=== PATIENT | female | born 1970 | race Caucasian/White ===

== ENCOUNTER 2018-01-09 11:57 | Outpatient (REF) | payer BC, SELFPAY ==
--- NOTE | 2018-01-09 10:30 | PAPFT_PTH ---
PATIENT: Sylvia Gordon LOC: [facility] U#:[id number] AGE/SX: 47/F ROOM: RE01/09/[address]: Sima Syed APRN : 1970 BED: DIS: 01/09/2018 SPEC #: [id number] RECD: 01/09/18 12:57 STATUS: JAZMINE REJovani #: [id number] FIDE: 01/09/18 10:[address]: Sima Syed DEPT: [facility] Cytology RECD BY: Rosa Andrew Tissues: 1 - CX/ENDOCX FOR PAP SMEARS Procedures: PAP THIN PREP/UVM Screening HPV DNA PROBE Comments: [id number]
== END 2018-01-09 12:17 ==
LOC: LBN 11:57
DX: Z12.4 Encounter for screening for malignant neoplasm of cervix (principal); Z11.51 Encounter for screening for human papillomavirus (HPV)
CPT/HCPCS: 88142; 87624

== ENCOUNTER 2018-01-17 02:31 | Outpatient (CLI) | payer BC, SELFPAY ==
[2018-01-17 08:41] LABS: ALT 21 U/L (12-78); AST 14 U/L (15-37); Alkaline Phosphatase 62 U/L (46-116); Anion Gap 6.8 mmol/L (3-11); BUN 13 mg/dL (7-18); Bilirubin, Total 0.6 mg/dL (0.2-1.0); CO2 31.2 mmol/L (21.0-32.0); CREATININE 0.71 mg/dL (0.55-1.02); Calcium 9.2 mg/dL (8.5-10.1); Chloride 104 mmol/L (98-107); Glucose 98 mg/dL (70-100); Potassium 4.2 mmol/L (3.5-5.1); Sodium 142 mmol/L (136-145); Total Protein 6.8 g/dL (6.4-8.2)
[2018-01-17 13:40] LABS: Cholesterol 247 mg/dL (50-200); HDL Cholesterol 72 mg/dL (40-60); LDL CHOLESTEROL 159 mg/dL (<100); Triglyceride 63 mg/dL (30-150)
== END 2018-01-17 02:51 ==
DX: Z00.00 Encounter for general adult medical examination without abnormal findings (principal); N95.1 Menopausal and female climacteric states; F17.200 Nicotine dependence, unspecified, uncomplicated; E78.00 Pure hypercholesterolemia, unspecified
CPT/HCPCS: 36415; 80053; 80061; 83721

== ENCOUNTER 2018-01-22 00:36 | Outpatient (CLI) | payer BC, SELFPAY ==
--- NOTE | 2018-01-22 07:42 | DI.MAMMO_ITS ---
SYMPTOM/DIAGNOSIS: SCREENING, Z12.31 MAMMOGRAMS: Mammograms were interpreted according to the usual protocol including computer analysis with CAD system, tomosynthesis and C view imaging. Comparison is made with exams from 2015 and 2017. The breasts are composed of heterogeneously dense fibroglandular tissue, breast density, Category C. No suspicious masses or suspicious microcalcifications are seen. There has been no significant change. IMPRESSION: Category 1C. Negative mammogram. Yearly screening mammography is recommended. [facility] ASSESSMENT OF FINDINGS: Negative. Category 1. Patient will receive a letter notifying them of these results. Bi-RADS category C. The breasts are heterogeneously dense, which may obscure small masses.
== END 2018-01-22 00:56 ==
DX: Z12.31 Encounter for screening mammogram for malignant neoplasm of breast (principal)
CPT/HCPCS: 77063; 77067

== ENCOUNTER 2019-01-28 02:43 | Outpatient (CLI) | payer BC, SELFPAY ==
[2019-01-28 11:04] LABS: Anion Gap 10.3 mmol/L (3-11); BUN 10 mg/dL (7-18); CO2 28.7 mmol/L (21.0-32.0); CREATININE 0.79 mg/dL (0.55-1.02); Calcium 9.1 mg/dL (8.5-10.1); Calculated LDL 144 mg/dL; Chloride 104 mmol/L (98-107); Cholesterol 219 mg/dL (50-200); Glucose 99 mg/dL (70-100); HDL Cholesterol 62 mg/dL (40-60); Potassium 4.2 mmol/L (3.5-5.1); Sodium 143 mmol/L (136-145); Triglyceride 69 mg/dL (30-150)
== END 2019-01-28 03:03 ==
DX: E78.5 Hyperlipidemia, unspecified (principal); I10 Essential (primary) hypertension; Z00.00 Encounter for general adult medical examination without abnormal findings
CPT/HCPCS: 36415; 80048; 80061

== ENCOUNTER 2019-03-17 01:03 | Outpatient (CLI) | payer BC, SELFPAY ==
--- NOTE | 2019-03-17 10:59 | DI.MAMMO_ITS ---
EXAM: MG MAMMO SCREENING CLINICAL HISTORY: screening, Z12.39. TECHNIQUE: Full field digital CC and MLO mammographic images were obtained with 3D tomosynthesis and utilizing computer aided detection (CAD). COMPARISON: [id number]. FINDINGS: Breast density: C Masses/Architectural Distortion: None seen. Microcalcifications: No suspicious pleomorphic-type calcifications are seen. Skin Thickening/Nipple Retraction: None. Axilla: Unremarkable. IMPRESSION: 1. BI-RADS category 1, negative. No significant interval change with no specific features of maligna ncy noted. 2. Unless there is more urgent need, screening mammography is recommended, as per [employer] guidelines. BI-RADS Cat 1 - Negative Breast Density - Category C - Heterogeneously dense A negative radiographic report should not delay biopsy if a dominant or clinically suspicious mass is present. Up to ten percent of cancers are not identified on mammography. A negative report may reinforce clinical impression. Adenosis and dense breasts may obscure an underlying neoplasm. False positive reports average 6 to 10%. Patient will receive a letter notifying them of these results.
== END 2019-03-17 01:23 ==
DX: Z12.31 Encounter for screening mammogram for malignant neoplasm of breast (principal)
CPT/HCPCS: 77063; 77067

== ENCOUNTER 2019-04-03 13:00 | Emergency (ER) | payer OTHER, SELFPAY ==
[2019-04-03 13:03] VITALS: BP 127/73; PULSE 82; RESP 16; TEMP 36.8; O2SAT 100
--- NOTE | 2019-04-03 13:10 | W.ED.GENAD ---
Discharge Plan Disposition Patient Disposition: HOME Condition: Good Discharge Details Chief Complaint: Orthopedic Clinical Impression: Tendonitis, Biceps tendinitis, Calcific tendonitis Primary Care Provider: Sima Syed ED Provider: Kathy Buchanan Home Meds and New Rx's Prescriptions: New ibuprofen 600 mg tablet 600 mg PO QID PRN (Reason: pain) Qty: 30 RF: 0 Continued ibuprofen 200 MG tablet 2 - 3 tab PO PRN RF: 0 Discharge Instructions Instructions: Tendinitis (ED) Additional Instructions: Encourage rest, ice, elevation. Please use ibuprofen as prescribed. You may augment this with Tylenol, you may take it thousand Tylenol 4 times a day as needed. You may use xtvp-xkh-[id number] patches such as salonpas or Lidoderm patches for the pain. Please perform your passive range of motion exercises as discussed. Please perform these exercises at least 5 times daily to help prevent frozen shoulder. Please avoid activities that cause increased discomfort. Referral for physical therapy is attached. Please call schedule appointment. Please contact your primary care and follow-up in the next 2 weeks for reevaluation. If you develop fever/chills, increased pain or other new/worsening symptoms please seek care urgently once again. Stand Alone Forms: Physical Therapy Referral, Work Release Referrals: Sima Syed, [employer] [Primary Care Provider] - Medical Decision Making Patient is a pleasant [id number]-vxfb-[id number] 48-year-old female presenting today with chief complaint of right shoulder pain. She reports that she has had some mild low-level chronic right shoulder painexacerbated at doing inventory at work overhead 3 days ago. She reports the pain was even further exacerbated when she was cleaning her house yesterday. She denies any known trauma. No recent fall. No fevers or chills. Patient is now having severe pain with any type of movement of the shoulder and is having difficulty with her ADLs secondary to this discomfort. No previous surgery. On exam, patient is exquisitely tender over the biceps tendon. Positive speeds exam. Negative Neer but positive Quesada. No Clifford deformity. Neurovascularly intact. Plan for imaging. Has been taking anti-inflammatories, will augment this with Tylenol and Lidoderm patch. Passive range of motion exercises were discussed at length with patient. X-ray reviewed by radiologist FINDINGS: Five views were obtained. On the axillary view there is apparent soft tissue calcification projected in the region of the subscapularis tendon raising the possibility of a calcific peritendinitis. No other bony or soft tissue abnormality is seen. This does correlate clinically as the patient did have exquisite discomfort with internal rotation against resistance. Discussed findings at length with the patient. I reiterated the importance of passive range of motion. I will discharge home with a sling as the patient has multiple upcoming social events to help limit her movements. However, I did advise that she not have these done otherwise as this may increase her risk for adhesive capsulitis. We discussed appropriate dosings of ibuprofen and Tylenol. Advised topical options to help with her discomfort. A referral for physical therapy will be given. I advised follow-up with primary care in 2 weeks for reevaluation. All other questions or concerns were addressed and she is in agreement this plan. HPI General Mode of arrival: ambulatory. Date/Time Provider Initiated Documentation: 04/03/19 13:04. Limitations to Documentation: no limitations. Information obtained by: patient and RN notes reviewed. History of Present Illness 48 year old F presents to the emergency department with the chief complaint of right shoulder pain, described as severe, with intensity rated at 8. Quality is described as aching, and is localized to the right and upper extremity. Patient extremity (distally into RUE). Patient started experiencing this day(s) and it has been constant. Immobilization improves symptom(s), Movement worsens symptoms (particularly over head movements) . Patient notes no other symptoms.. Patient did receive the following treatments prior to arrival, NSAID Related Data Home Medications Medication Instructions Recorded Confirmed ibuprofen 2 - 3 tab PO PRN 10/25/16 04/03/19 ibuprofen 600 mg PO QID PRN #30 tab 04/03/19 Previous Rx's Medication Instructions Recorded ibuprofen 600 mg PO QID PRN #30 tab 04/03/19 Allergies Allergy/AdvReac Type Severity Reaction Status Date / Time No Known Allergies Allergy Verified 04/03/19 13:07 General Stated Complaint: Orthopedic NINA: 4 Review of Systems Constitutional Constitutional: Reports as per HPI, Denies chills, Denies fever(s), Denies headache(s) and Denies weakness ENT Ears, Nose, Mouth, and Throat: Denies headache(s) Cardiovascular Cardiovascular: Reports as per HPI Respiratory Respiratory: Reports as per HPI and Denies cough Musculoskeletal Musculoskeletal: Reports as per HPI and Denies tingling Integumentary/Breasts Skin/Breast: Reports as per HPI, Denies rash and Denies wounds Neurologic Neurologic: Reports as per HPI, Denies headache(s), Denies tingling, Denies paresthesias and Denies weakness [facility] Medical History Complicated grieving (Acute) Finger problem (Acute) Surgical History History of tonsillectomy (Resolved) 1980 Family History (Updated 01/17/19 @ 10:12 by Weston Cifuentes) Mother , AGE 39 Breast cancer Father Hyperlipidemia Brother No problems noted. Maternal Grandfather , age 82 No problems noted. Paternal Grandfather , age 80 No problems noted. Maternal Grandmother , age 93 No problems noted. Paternal Grandmother , age 84 No problems noted. Social History Smoking/Tobacco Use Status: Current every day Tobacco Type: cigarettes Quit status: has quit before Smoking risk assessment performed?: Yes Alcohol Intake: current Alcohol Intake frequency: a few times a week Alcohol type: beer Drug use: Never Substance use type: does not use Counseling given: No Counseling provided: none Caregiver/Support person: No Household members: spouse, family, children and other Details: TBI client Housing: house Communication Needs: None Do you need help understanding health information?: Rarely current occupation: CONTROLLER Pets and animals: Yes Pets and animals: dog(s) Sexually active: Yes Do you think of yourself as: straight/heterosexual Current gender identity: female What is your relationship status?: How often do you talk on the phone with friends or family?: once per week How often do you get together with friends or relatives?: once per week How often do you attend orthodox or adventist services?: 1-3 times per year Do you belong to any clubs or organized social groups?: no Panel score (0-1 are the most socially isolated patients): 1 What type of physical activity do you participate in: walking Duration: < 15 minutes/day Frequency: 1-2 times per week Emily/Mormon: No preference Special emily needs: No Seatbelt use: always Helmet use: Yes Helmet use: always Drive intox or ride w/intox otr flatbed driver: No Do you feel safe at home: Yes Do you feel safe in your relationship?: Yes Exam Const General: cooperative, healthy appearing, comfortable, no acute distress, well developed and well groomed Nutritional Appearance: average body habitus and well nourished Orientation: alert and awake Resp Effort & Inspection: normal respiratory effort, able to speak in complete sentences and no respiratory distress Cardio Rate: regular rate Rhythm: regular rhythm Skin General skin exam: no rashes or lesions noted Lesions: no lesions Rashes: no rashes Trauma: no lacerations or abrasions Neuro General: alert and awake Cognition: normal cognition Speech: speech normal Gait: normal gait Motor: muscle tone normal throughout Sensory Exam: no sensory deficits noted Extrem General: normal to inspection, abnormal ROM, normal capillary refill, normal exam except as noted and no joint enlargement Right upper extremity: normal to inspection, normal capillary refill, no joint enlargement, shoulder/upper arm Details: tenderness Location: over the biceps tendon, axillary nerve sensory function normal, abnormal ROM Details: pain with active ROM (FE to 90, ER equal to contralateral side, IR to buttock) and other (+ speed, - neer, +quesada); no swelling, no abrasions, no lacerations, no ecchymosis, no crepitus, no foreign bodies, no penetrating wound, no deformity and no unusual warmth, elbow/forearm Details: normal to inspection, normal ROM and distal pulses intact; no tenderness and no swelling, wrist Details: normal to inspection and normal ROM; no tenderness and no swelling and hand Details: normal to inspection, normal capillary refill, neuromotor exam normal and neurosensory exam normal; ROM limited Psych Appearance: grossly normal and well kempt Mental Status: mental status grossly normal Speech and Movement: speech and movement normal Course Vital Signs Vital signs: Vital Signs Temperature 36.8 C 04/03/19 13:03 Pulse 82 04/03/19 13:03 Respiratory Rate 16 04/03/19 13:03 Blood Pressure 127/73 04/03/19 13:03 Pulse Oximetry 100 04/03/19 13:03 Temperature 36.8 C 04/03/19 13:03 Temperature Source Temporal Artery Scan 04/03/19 13:03 Pulse 82 04/03/19 13:03 Respiratory Rate 16 04/03/19 13:03 Respiratory Effort Non-Labored 04/03/19 13:06 Blood Pressure 127/73 04/03/19 13:03 Blood Pressure Position Sitting 04/03/19 13:03 Pulse Oximetry 100 04/03/19 13:03 Oxygen Delivery Method Room Air 04/03/19 13:03 Oxygen Flow Rate 0 04/03/19 13:03 Pain Level 8 04/03/19 13:03
[2019-04-03] MEDS: Acetaminophen 500 MG TAB 1000 MG PO (13:31)
[2019-04-03] MEDS: Lidocaine 5% Patch 1 PATCH TP (13:32)
--- NOTE | 2019-04-03 13:39 | DI.RAD_ITS ---
EXAM: XR SHOULDER LT COMPLETE 2+V CLINICAL HISTORY: pain anteriorly TECHNIQUE: COMPARISON: No exams were available for comparison FINDINGS: Five views were obtained. On the axillary view there is apparent soft tissue calcification projected in the region of the subscapularis tendon raising the possibility of a calcific peritendinitis. No other bony or soft tissue abnormality is seen. IMPRESSION:
== END 2019-04-03 14:23 | disposition home or self-care (01) ==
PROVIDERS: Emergency Provider Physician Assistant
DX: M75.21 Bicipital tendinitis, right shoulder (principal); M75.31 Calcific tendinitis of right shoulder
CPT/HCPCS: 99283; 73030; L3650

== ENCOUNTER 2019-04-18 09:48 | Day surgery (SDC) | payer OTHER, SELFPAY ==
[2019-04-18 10:27] VITALS: BP 125/84; PULSE 92; RESP 16; TEMP 36.2; O2SAT 99
[2019-04-18] MEDS: Lactated Ringers 1,000 ML 80 ML IV (10:43)
--- NOTE | 2019-04-18 11:20 | W.PM.DSUDISC ---
Discharge Plan Disposition Patient Disposition: HOME Condition: Good Discharge Details Reason For Visit: Colonoscopy Attending Provider: Sangeetha Mccormick Primary Care Provider: Sima Syed Home Meds and New Rx's Prescriptions: Continued ibuprofen 200 MG tablet 2 - 3 tab PO PRN RF: 0 Discontinued polyethylene glycol 3350 17 gram/dose powder 238 g PO ONCE Qty: 238 RF: 0 bisacodyl [Dulcolax (bisacodyl)] 5 mg tablet,delayed release (DR/EC) 5 mg PO ONCE Qty: 4 RF: 0 Discharge Instructions Additional Instructions: Findings: Two polyps were removed. My office will contact you with biopsy results. Follow up: Plan for a colonoscopy in 3-5 depending on biopsy results. Please call if you develop: fevers >101.5 Nausea or Vomiting Abdominal pain that is not transient DAY SURGERY UNIT POST COLONOSCOPY INSTRUCTIONS 1. Because there will be medication in your system for the next 24 hours, you may feel a little sleepy. Your coordination will be affected. Therefore: a. Do not drive or operate dangerous equipment for 24 hours. b. Do not drink alcohol beverages for 24 hours (not even beer). c. Plan to go home and rest for the day. 2. Generally there are no restrictions on your activity after a day or so has gone by, but you may feel a bit fatigued for a few days. 3 After you arrive home you may have a light meal and return to a normal diet as you can tolerate it without feeling sick to your stomach. 4. After surgery, you may feel pain or discomfort. This should be only transient, but if it persists please contact your doctor. 5. If there are any questions regarding the findings of your procedure, please feel free to contact your doctor. 6. If you are unable to contact your doctor with a problem, contact the hospital at [phone]. 7. Continue all your regular medications unless directed otherwise. I understand the above instructions and have no questions. Signature of Patient or Responsible Adult Escort Date/Time Name of Responsible Adult Escort Signature of Nurse Date/Time Stand Alone Forms: Mehran Coleman ([facility]) Activity:: Activity as Tolerated Diet:: As Tolerated Discharge Orders Discharge Orders: Discharge Order (Routine); Ordered 04/18/19 Ordered By: Sangeetha Mccormick DS: Diagnosis Discharge Diagnosis (1) Colon polyps: Status: Acute
--- NOTE | 2019-04-18 12:00 | BOWEL_PTH ---
PATIENT: Sylvia Gordon LOC: [facility] U#:[id number] AGE/SX: 48/F ROOM: RE04/18/[address]: Sangeetha Mccormick MD : 1970 BED: DIS: 04/18/2019 SPEC #: [id number] RECD: 04/18/19 13:21 STATUS: JAZMINE REJovani #: [id number] FIDE: 04/18/19 12:[address]: Sangeetha Mccormick DEPT: Surgical Specimen RECD BY: Rosa Andrew ENTERED: 04/18/19 13:22 SP TYPE: Bowel OTHR DR: Sima Syed APRN Tissues: 1 - BIOPSY BOWEL 2 - BIOPSY BOWEL Procedures: GROSS AND MICRO LEVEL 4 Comments: [id number]
[2019-04-18 12:53] VITALS: BP 105/73; PULSE 64; RESP 16; TEMP 36.2; O2SAT 100
--- NOTE | 2019-04-18 12:59 | COLE_ITS ---
DATE OF PROCEDURE: April 18, 2019 PREOPERATIVE DIAGNOSIS: Screening. POSTOPERATIVE DIAGNOSIS: Colon polyps. PROCEDURE: Colonoscopy with cold forceps polypectomy and snare polypectomy. SURGEON: Sangeetha Mccormick M.D. ANESTHESIA: General. INDICATIONS: This is a 48-year-old woman who presents for her first screening colonoscopy. She is a symptomatic and has no family history of colon cancer. PROCEDURE: She was placed in the left Falcon position. Propofol was titrated to sedation. Digital re ctal examination revealed no abnormalities. The scope was advanced to the cecum without difficulty. The ileocecal valve and appendiceal orifice were clearly identified. Her prep was good. The scope was slowly withdrawn with no abnormalities seen within the ascending or transverse colon. In the pro ximal descending colon there was a diminutive polyp that was removed completely with a cold forceps a nd sent to pathology. No other abnormalities were seen throughout the remaining descending or sigmoi d colon. In the rectum just above the second rectal valve was a < 1 cm polyp that appeared slightly lymphoid in nature. This was removed completely with the snare using cautery and retrieved for patho logy. Retroflexion showed no other abnormalities. She will need a follow-up colonoscopy again in 3 to 5 years depending on polyp pathology. cc: Chong Miller
== END 2019-04-18 13:03 | disposition home or self-care (01) ==
PROVIDERS: Visit Provider Surgery
PROC: 0DJD8ZZ Inspection of Lower Intestinal Tract, Via Natural or Artificial Opening Endoscopic (ICD-10-PCS; CPT 45378; principal; 2019-04-18 11:15)
DX: Z12.11 Encounter for screening for malignant neoplasm of colon (principal); D12.4 Benign neoplasm of descending colon; K62.1 Rectal polyp; F17.210 Nicotine dependence, cigarettes, uncomplicated
CPT/HCPCS: 45385; 45380; 88305; J2001

== ENCOUNTER 2019-11-24 10:47 | Emergency (ER) | payer OTHER, SELFPAY ==
[2019-11-24 10:51] VITALS: BP 130/74; PULSE 99; TEMP 37.2; O2SAT 96
--- NOTE | 2019-11-24 11:00 | DI.RAD_ITS ---
EXAM: XR ELBOW LT COMPLETE CLINICAL HISTORY: Fall last night TECHNIQUE: COMPARISON: No exams were available for comparison FINDINGS: Three views were obtained. There is no evidence of an elbow joint effusion or hemarthrosis. No frac ture is seen. IMPRESSION: RADIATION DOSE DELIVERED: Total DLP
--- NOTE | 2019-11-24 11:00 | DI.RAD_ITS ---
EXAM: XR FOOT RT COMPLETE CLINICAL HISTORY: Fall last night TECHNIQUE: COMPARISON: No exams were available for comparison FINDINGS: Three views were obtained. There is no evidence of fracture or dislocation. IMPRESSION: RADIATION DOSE DELIVERED: Total DLP
--- NOTE | 2019-11-24 11:08 | W.ED.GENAD ---
Discharge Plan Disposition Patient Disposition: HOME Condition: Stable Discharge Details Chief Complaint: Orthopedic Clinical Impression: Contusion of foot, Contusion of elbow Primary Care Provider: Sima Syed ED Provider: Kiko Delcid Home Meds and New Rx's Prescriptions: Continued ibuprofen 200 MG tablet 2 - 3 tab PO PRN RF: 0 Discharge Instructions Instructions: Contusion in Adults (ED), Foot Contusion (ED) Additional Instructions: Both x-rays are unremarkable. We discussed treatment options, you have declined crutches or splinting. Rest, elevate, cool compresses every 2 hours for 20 minutes. Gyix-nat-biswyof Tylenol and/or Motrin as directed for discomfort. Please watch for new or worsening symptoms and return to the ER for any concerns. I do recommend reaching out your primary care provider and following up at your convenience if symptoms persist Medical Decision Making 49-year-old female with no significant past medical history presents for evaluation of left elbow and right foot pain status post mechanical fall yesterday. She appears well, nontoxic, denies striking her head. Denies headache, neck pain, numbness, tingling, weakness. She is neuro, vascular, tendon intact. Will obtain x-ray of left elbow and right foot for further evaluation to rule out any bony abnormality. Patient comfortable this plan X-ray of right foot and left elbow read by radiology as negative. Discussed findings with patient. She declines crutches or splinting. Simply relieved that it is not broken. Case was discussed with Dr. Eaton who evaluated the patient personally, please see his note Medical Records Medical records reviewed: Yes I reviewed the patient's medical records. HPI General Mode of arrival: ambulatory. Date/Time Provider Initiated Documentation: 11/24/19 10:59. Limitations to Documentation: no limitations. Information obtained by: patient. HPI Narrative: This is a 49-year-old female who is left-hand dominant, denies significant past medical history, presenting for evaluation status post mechanical fall last night. She reports that she slipped on [place] and injured her right ankle, left elbow, only been on both knees. She reports the pain in her elbow and foot is moderate in nature, worse with movement. Pain in the knees are minor and she is able to ambulate on them without difficulty. She did not strike her head. Denies any other injuries. Denies headache, neck pain, chest pain, shortness of breath, numbness, tingling, weakness, incontinence. Related Data Home Medications Medication Instructions Recorded Confirmed ibuprofen 2 - 3 tab PO PRN 10/25/16 11/24/19 Allergies Allergy/AdvReac Type Severity Reaction Status Date / Time No Known Allergies Allergy Verified 11/24/19 10:55 General Stated Complaint: Orthopedic NINA: 3 Review of Systems Constitutional Constitutional: Denies weakness ENT Ears, Nose, Mouth, and Throat: Denies neck pain Cardiovascular Cardiovascular: Denies chest pain and Denies dyspnea Respiratory Respiratory: Denies dyspnea Gastrointestinal Gastrointestinal: Denies nausea and Denies vomiting Musculoskeletal Musculoskeletal: Denies back pain, Denies neck pain, Denies numbness and Denies tingling Integumentary/Breasts Skin/Breast: Denies rash Neurologic Neurologic: Denies numbness, Denies tingling and Denies weakness FOR[facility]LY [facility] Medical History Complicated grieving (Acute) Finger problem (Acute) ?carpal tunnel Surgical History History of tonsillectomy (Resolved) 1981 History of wisdom tooth extraction (Acute) Family History Mother , AGE 39 Breast cancer Father Hyperlipidemia Brother No problems noted. Maternal Grandfather , age 82 No problems noted. Paternal Grandfather , age 80 No problems noted. Maternal Grandmother , age 93 No problems noted. Paternal Grandmother , age 84 No problems noted. Social History Smoking/Tobacco Use Status: Current every day Tobacco Type: cigarettes Tobacco: How many years used: 20 Quit status: has quit before Smoking risk assessment performed?: Yes Alcohol Intake: current Alcohol Intake frequency: a few times a week Alcohol type: beer Drug use: Never Substance use type: does not use Counseling given: No Counseling provided: none Caregiver/Support person: No Household members: spouse, family, children and other Details: TBI client Housing: house Communication Needs: None Do you need help understanding health information?: Rarely current occupation: CONTROLLER Pets and animals: Yes Pets and animals: dog(s) Sexually active: Yes Do you think of yourself as: straight/heterosexual Current gender identity: female What is your relationship status?: How often do you talk on the phone with friends or family?: once per week How often do you get together with friends or relatives?: once per week How often do you attend orthodox or nondenominational services?: 1-3 times per year Do you belong to any clubs or organized social groups?: no Panel score (0-1 are the most socially isolated patients): 1 What type of physical activity do you participate in: walking Duration: < 15 minutes/day Frequency: 1-2 times per week Emily/Confucianist: No preference Special emily needs: No Seatbelt use: always Helmet use: Yes Helmet use: always Drive intox or ride w/intox local driver: No Do you feel safe at home: Yes Do you feel safe in your relationship?: Yes Exam Const General: cooperative, healthy appearing, comfortable and no acute distress Orientation: alert, awake and oriented x3 HENMT Head: normal to inspection, normocephalic and atraumatic Mouth: moist mucous membranes Eyes Conjunctivae: conjunctivae normal Sclera: sclerae normal Neck Neck: normal visual inspection, full ROM, trachea midline and supple Resp Effort & Inspection: normal respiratory effort and able to speak in complete sentences Cardio Rate: regular rate Rhythm: regular rhythm Back/Spine/Pelvis Back: No back tenderness Skin General skin exam: no rashes or lesions noted Neuro General: patient alert, patient awake, patient oriented x3, moves all extremities and no focal motor deficits Cranial Nerves: CN's II-XI intact bilaterally Cognition: normal cognition Speech: speech normal Gait: antalgic Motor: muscle tone normal throughout Sensory Exam: no sensory deficits noted Extrem Right upper extremity: normal to inspection, full ROM and normal capillary refill Left upper extremity: full ROM, normal capillary refill, shoulder/upper arm Details: inspection abnormal and normal ROM; no tenderness and no swelling, elbow/forearm Details: tenderness Location: of the olecranon (Minimal tenderness, swelling, abrasion), wrist Details: normal to inspection and normal ROM; no tenderness and no swelling and hand Details: normal to inspection, normal capillary refill and normal ROM of fingers Right lower extremity: full ROM, knee Details: normal to inspection and normal ROM; no tenderness and no swelling, ankle Details: normal to inspection and normal ROM; no tenderness and no swelling and foot Details: normal capillary refill, tenderness (Entire fifth metatarsal), toes with normal ROM and ecchymosis (Distal fifth metatarsal) Left lower extremity: normal to inspection, full ROM, normal capillary refill and knee Details: normal to inspection and normal ROM; no tenderness and no swelling Psych Appearance: grossly normal Mental Status: mental status grossly normal Course Vital Signs Vital signs: Vital Signs Temperature 37.2 C 11/24/19 10:51 Pulse 99 H 11/24/19 10:51 Blood Pressure 130/74 11/24/19 10:51 Pulse Oximetry 96 11/24/19 10:51 Temperature 37.2 C 11/24/19 10:51 Temperature Source Temporal Artery Scan 11/24/19 10:51 Pulse 99 H 11/24/19 10:51 Respiratory Effort Non-Labored 11/24/19 10:54 Blood Pressure 130/74 11/24/19 10:51 Blood Pressure Position Sitting 11/24/19 10:51 Pulse Oximetry 96 11/24/19 10:51 Oxygen Delivery Method Room Air 11/24/19 10:51 Oxygen Flow Rate 0 11/24/19 10:51 Pain Level 7 11/24/19 10:51
== END 2019-11-24 12:05 | disposition home or self-care (01) ==
PROVIDERS: Emergency Provider Physician Assistant
DX: S90.31XA Contusion of right foot, initial encounter (principal); S50.02XA Contusion of left elbow, initial encounter; W18.30XA Fall on same level, unspecified, initial encounter
CPT/HCPCS: 99284; 73080; 73630

== ENCOUNTER 2020-03-18 00:35 | Outpatient (CLI) | payer OTHER, SELFPAY ==
--- NOTE | 2020-03-18 06:15 | DI.MAMMO_ITS ---
EXAM: MG MAMMO SCREENING CLINICAL HISTORY: screening,z12.39. TECHNIQUE: Bilateral full field digital CC and MLO mammographic images were obtained with 3D tomosyn thesis and utilizing computer aided detection (CAD). COMPARISON: Prior mammograms dating back to 2011, the most recent being March 2019. FINDINGS: Fibroglandular tissue is moderately dense There are no spiculated masses nor malignant appearing microcalcification groups. There is no signif icant architectural distortion nor skin thickening-retraction. IMPRESSION: Moderately dense fibroglandular tissue. No obvious radiographic evidence of malignancy. BI-RADS Category 1 - Negative Breast Density - Category C - Heterogeneously dense Breast density Category C or D implies that the patient has dense breast tissue. Dense breast tissue can make it harder to find cancer on a mammogram. Dense breast tissue is also associated with an incr eased risk of breast cancer. This information about the result of the mammogram report was provided to the patient to raise their awareness. Use this report when you speak with the patient about their risks for breast cancer, which includes their family history. At that time, you may recommend additional screening tests (Ultrasoun d or MRI) as these tests may add significant information. A negative radiographic report should not delay biopsy if a dominant or clinically suspicious mass is present. Up to ten percent of cancers are not identified on mammography. A negative report may reinforce clinical impression. Adenosis and dense breasts may obscure an underlying neoplasm. False positive reports average 6 to 10%. Patient will receive a letter notifying them of these results.
== END 2020-03-18 00:55 ==
DX: Z12.31 Encounter for screening mammogram for malignant neoplasm of breast (principal)
CPT/HCPCS: 77063; 77067

== ENCOUNTER 2020-10-06 16:08 | Outpatient (REF) | payer OTHER, SELFPAY ==
[2020-10-08 11:50] LABS: COVID-19 RT-PCR UVMMC Result Negative (Negative)
== END 2020-10-06 16:09 | disposition home or self-care (01) ==
LOC: LBN 16:08
PROVIDERS: Visit Provider Family Medicine
DX: Z20.822 Contact with and (suspected) exposure to COVID-19 (principal); R05 Cough
CPT/HCPCS: U0003

== ENCOUNTER 2021-01-13 02:30 | Outpatient (CLI) | payer OTHER, SELFPAY ==
[2021-01-13 12:58] LABS: ALT 24 U/L (14-59); AST 16 U/L (15-37); Albumin 4.3 g/dL (3.4-5.0); Alkaline Phosphatase 76 U/L (46-116); Anion Gap 6.5 mmol/L (3-11); BUN 8 mg/dL (7-18); Bilirubin, Total 0.5 mg/dL (0.2-1.0); CO2 32.5 mmol/L (21.0-32.0); CREATININE 0.8 mg/dL (0.55-1.02); Calcium 9.3 mg/dL (8.5-10.1); Chloride 106 mmol/L (98-107); Glucose 95 mg/dL (74-106); Potassium 4.4 mmol/L (3.5-5.1); Sodium 145 mmol/L (136-145); TSH (W/Ref FT4) 0.97 uIU/mL (0.36-3.74); Total Protein 6.8 g/dL (6.4-8.2)
== END 2021-01-13 02:31 | disposition home or self-care (01) ==
LOC: LOS 02:31
DX: R00.2 Palpitations; G47.00 Insomnia, unspecified; Z00.00 Encounter for general adult medical examination without abnormal findings
CPT/HCPCS: 36415; 80053; 84443

== ENCOUNTER 2021-01-24 11:32 | Outpatient (REF) | payer OTHER, SELFPAY ==
--- NOTE | 2021-01-24 10:15 | PAPFT_PTH ---
PATIENT: Sylvia Gordon LOC: [facility] U#:[id number] AGE/SX: 50/F ROOM: RE01/24/[address]: Sima Syed APRN : 1970 BED: DIS: 01/24/2021 SPEC #: [id number] RECD: 01/24/21 13:07 STATUS: JAZMINE ESPOSITO #: [id number] FIDE: 01/24/21 10:[address]: Sima Syed DEPT: [facility] Cytology RECD BY: Rosa Andrew Tissues: 1 - CX/ENDOCX FOR PAP SMEARS Procedures: PAP THIN PREP/UVM Screening HPV DNA PROBE Comments: [id number]
== END 2021-01-24 11:33 | disposition home or self-care (01) ==
LOC: LBN 11:32
DX: Z12.4 Encounter for screening for malignant neoplasm of cervix (principal); Z11.51 Encounter for screening for human papillomavirus (HPV)
CPT/HCPCS: 88142; 87624

== ENCOUNTER 2021-03-22 00:55 | Outpatient (CLI) | payer OTHER, SELFPAY ==
--- NOTE | 2021-03-22 07:55 | DI.MAMMO_ITS ---
Exam(s) MAMMO SCREENING EXAM: MAMMO SCREENING CLINICAL HISTORY: screening,Z12.39 TECHNIQUE: Bilateral full field digital CC and MLO mammographic images were obtained with 3D tomosyn thesis and utilizing computer aided detection (CAD). COMPARISON: Available for comparison. FINDINGS: Masses/Architectural Distortion: There is a focal asymmetry in the posterior superior left breast on the MLO view. This area should be further evaluated. Microcalcifications: No suspicious pleomorphic-type are seen. Skin Thickening/Nipple Retraction: None. IMPRESSION: 1. Focal asymmetry in the posterior superior left breast on the MLO view. 2. Further evaluation with spot compression views recommended. Ultrasound may be indicated at that t princess. BI-RADS Category 0 - Assessment Incomplete: Need additional imaging evaluation Breast Density - Category C - Heterogeneously dense Breast density category C or D implies that the patient has dense breast tissue. Dense breast tissue is very common and is not abnormal but dense breast tissue can make it harder to find cancer on a ma mmogram. Also, dense breast tissue may increase their breast cancer risk. This information about the result of the mammogram report was provided to the patient to raise their awareness. Use this report when you speak with the patient about their risks for breast cancer, which includes their family hist ory. At that time, you may recommend for more screening tests (Ultrasound or MRI) as they might be us eful based on their risk. A negative radiographic report should not delay biopsy if a dominant or clinically suspicious mass is present. Up to ten percent of cancers are not identified on mammography. A negative report may reinforce clinical impression. Adenosis and dense breasts may obscure an underlying neoplasm. False positive reports average 6 to 10%. Patient will receive a letter notifying them of these results.
== END 2021-03-22 01:15 ==
DX: Z12.31 Encounter for screening mammogram for malignant neoplasm of breast (principal); R92.8 Other abnormal and inconclusive findings on diagnostic imaging of breast
CPT/HCPCS: 77063; 77067

== ENCOUNTER 2021-03-31 02:23 | Outpatient (CLI) | payer OTHER, SELFPAY ==
--- NOTE | 2021-03-31 | DI.US_ITS ---
Exam(s) MG MAMMO SCREEN CALL BACK UNI US BREAST LT COMPLETE EXAM: MG MAMMO SCREEN CALL BACK UNI -LEFT AND COMPLETE LEFT BREAST ULTRASOUND CLINICAL HISTORY: F/U MAMMO, FOCAL ASYMMETRY POSTERIOR SUPERIOR LT BREAST. TECHNIQUE: Unilateral spot mammographic images obtained with 3D tomosynthesisand utilizing computer aided detection (CAD). . Complete LEFT breast Ultrasound was also performed, including all 4 quadrants, the retroareolar brandyn on, and the ipsilateral axilla. COMPARISON: Prior mammograms were reviewed. This additional imaging was performed due to findings described on the recent screening mammogram of 03/22/2021. FINDINGS: Additional mammographic views performed todayrender this area less concerning and similar in appearan ce to prior mammograms. COMPLETE LEFT BREAST ULTRASOUND: Ultrasound performed today reveals no evidence of solid or significant cystic lesions in all 4 quadra nts. No focal findings in the retroareolar region. Ipsilateral left axilla is negative for signific ant adenopathy. IMPRESSION: 1. No radiographic evidence of malignancy in left breast. 2. Negative complete left breast ultrasound. Appropriate follow-up is to keep this patient yearly mammogram schedule, with earlier imaging if a s elf detected breast change is noted.. The patient was informed of these findings and recommendations prior to leaving the department today. BI-RADS Category 2 - Benign Findings Breast Density - Category B - Scattered areas of fibroglandular density Breast density Category C or D implies that the patient has dense breast tissue. Dense breast tissue can make it harder to find cancer on a mammogram. Dense breast tissue is also associated with an incr eased risk of breast cancer. This information about the result of the mammogram report was provided to the patient to raise their awareness. Use this report when you speak with the patient about their risks for breast cancer, which includes their family history. At that time, you may recommend additional screening tests (Ultrasoun d or MRI) as these tests may add significant information. A negative radiographic report should not delay biopsy if a dominant or clinically suspicious mass is present. Up to ten percent of cancers are not identified on mammography. A negative report may reinforce clinical impression. Adenosis and dense breasts may obscure an underlying neoplasm. False positive reports average 6 to 10%. Patient will receive a letter notifying them of these results.
== END 2021-03-31 02:43 ==
DX: Z12.31 Encounter for screening mammogram for malignant neoplasm of breast (principal); R92.8 Other abnormal and inconclusive findings on diagnostic imaging of breast; N64.59 Other signs and symptoms in breast
CPT/HCPCS: 76642; 77063; 77067

== ENCOUNTER 2021-07-31 22:57 | Emergency (ER) | payer BC, SELFPAY ==
--- NOTE | 2021-07-31 23:00 | DI.RAD_ITS ---
Exam(s) XR ANKLE LT COMPLETE EXAM: XR ANKLE LT COMPLETE CLINICAL HISTORY: Injury, R/O Fracture TECHNIQUE: 2D digital imaging was performed. Three views. COMPARISON: No exams were available for comparison FINDINGS: BONES: No acute fracture is present. No bony destructive lesion is seen. JOINTS:The ankle mortise is normally aligned. SOFT TISSUE: Swelling around malleoli. IMPRESSION: Soft tissue swelling. No fracture.. DATA REPOSITORY: RADIATION DOSE DELIVERED:
[2021-07-31 23:04] VITALS: BP 119/72; PULSE 84; RESP 18; TEMP 36.6; O2SAT 100
--- NOTE | 2021-07-31 23:12 | ED.GENADUL_ITS ---
Discharge Plan Disposition Patient Disposition: HOME Condition: Stable Discharge Details Clinical Impression: Fracture of left foot Primary Care Provider: Sima Syed ED Provider: Aliza Dee Home Meds and New Rx's Prescriptions: No Action ibuprofen 200 MG tablet 2 - 3 tab PO PRN 0RF Discharge Instructions Instructions: Foot Fracture in Adults (ED), Splint Care (ED) Additional Instructions: At this time there is a questionable fracture noted to the calcaneus. Please follow-up with orthopedics sometime this week. Keep the splint on until follow- up. Rest, ice, compression, elevation. Use crutches and non-weightbearing or toe touch weight bearing as tolerated. Please take Tylenol or Ibuprofen with food every 4-6 hours as needed for pain and swelling. Return to the ER for any problems with circulation, pain not relieved by Tylenol or ibuprofen significant swelling or any problems with circulation to foot or toes. Stand Alone Forms: Work Release Referrals: Sima Syed NP [Primary Care Provider] - Dean Epps MD [ [facility] STAFF PHYSICIAN] - 1 week Medical Decision Making 51-year-old female presents to the ER with chief complaint of left ankle pain. Patient states that she was out walking her 200 pound dog when he took off on the leash. She held onto the leash fell twisting her ankle after stepping in a hole in the yard. She reports that she fell on her hands and knees and crawled to get inside. She reports increased pain with weightbearing. There is some swelling noted to the lateral malleolus tenderness to the lateral foot. Does have a superficial abrasion noted to her right knee. No other significant injuries denies hitting her head or loss of consciousness. Did not take any medications prior to arrival. Xray, Tylenol Ordered. Questionable calcaneal fracture on x-rays. Posterior and stirrup splint with plaster placed with web roll and stocking. CMS intact post splint application. Patient tolerated well. Patient presented with her own crutches. Discussed follow-up with orthopedics and home care she verbalizes understanding. XRay read as Negative, Will go forward with Ortho Follow up for re-eval. This text was generated using Supersonication system, please disregard any oddities of phrase or misspellings. Imaging Data Radiologic Study: Imaging: X-Ray My impression: Questionable Calcaneal Fracture Radiologist's impression: Imaging protocol: XR Left ankle. Views: 3 or more views. COMPARISON: No relevant prior studies available. FINDINGS: Bones/joints: Normal. Soft tissues: Normal. IMPRESSION: No acute findings. Thank you for allowing us to participate in the care of your patient. Dictated and Authenticated by: Sher Olson MD [facility] General Mode of arrival: wheelchair . Date/Time Provider Initiated Documentation: 07/31/21 23:06 . Limitations to Documentation: no limitations . Information obtained by: patient and RN notes reviewed . HPI Narrative: 51-year-old female presents to the ER with chief complaint of left ankle pain. Patient states that she was out walking her 200 pound dog when he took off on the leash. She held onto the leash fell twisting her ankle after stepping in a hole in the yard. She reports that she fell on her hands and knees and crawled to get inside. She reports increased pain with weightbearing. There is some swelling noted to the lateral malleolus tenderness to the lateral foot. Does have a superficial abrasion noted to her right knee. No other significant injuries denies hitting her head or loss of consciousness. Did not take any medications prior to arrival. Related Data Home Medications Medication Instructions Recorded Confirmed ibuprofen 200 mg tablet 2 - 3 tab PO PRN 10/25/16 01/24/21 Allergies Allergy/AdvReac Type Severity Reaction Status Date / Time No Known Allergies Allergy Verified 07/31/21 23:08 General Stated Complaint: Orthopedic NINA: 3 Review of Systems All systems reviewed & are unremarkable except as noted in HPI and below Musculoskeletal Musculoskeletal: Reports arthralgias and Reports joint swelling PFSH All Active Problems (Updated 08/01/21 @ 00:39 by Aliza Dee) Fracture of left foot (Acute) Acute reaction to situational stress (Acute) Left knee injury (Acute) Heart palpitations (Acute) Encounter for annual physical exam (Acute) Colon polyps (Acute) Atypical glandular cells on cervical Pap smear (Acute 09/09/14) Irregular menstrual cycle (Acute 08/28/14) Perimenopause (Acute 08/28/14) Skin tags, multiple acquired (Acute 01/04/17) Smoking (Acute) Left otitis media (Acute) Pre-syncope (Acute) Finger problem (Acute) ?carpal tunnel Complicated grieving (Acute) Surgical History History of tonsillectomy 1981 History of wisdom tooth extraction Family History Mother , AGE 39 Breast cancer Father Hyperlipidemia Brother No problems noted. Maternal Grandfather , age 82 No problems noted. Paternal Grandfather , age 80 No problems noted. Maternal Grandmother , age 93 No problems noted. Paternal Grandmother , age 84 No problems noted. Social History Smoking/Tobacco Use Status: Current every day Tobacco Type: cigarettes Tobacco: How many years used: 30 Quit status: considering quitting Smoking risk assessment performed?: Yes Alcohol Intake: current Alcohol Intake frequency: a few times a week Alcohol type: beer Drug use: Never Substance use type: does not use Counseling given: No Counseling provided: none Caregiver/Support person: No Household members: spouse, children and other Details: TBI client Housing: house Communication Needs: None Do you need help understanding health information?: Rarely current occupation: CONTROLLER Pets and animals: Yes Pets and animals: dog(s) Sexually active: Yes Do you think of yourself as: straight/heterosexual Current gender identity: female What is your relationship status?: How often do you talk on the phone with friends or family?: twice per week How often do you get together with friends or relatives?: once per week How often do you attend evangelical or islam services?: 1-3 times per year Do you belong to any clubs or organized social groups?: no Panel score (0-1 are the most socially isolated patients): 2 What type of physical activity do you participate in: walking Duration: < 15 minutes/day Frequency: 3-4 times per week Emily/Uatsdin: No preference Special emily needs: No Seatbelt use: always Helmet use: Yes Helmet use: always Drive intox or ride w/intox auto [place]ulaway driver: No Do you feel safe at home: Yes Do you feel safe in your relationship?: Yes Exam Extrem Right lower extremity: normal to inspection and knee Details: abrasion (Superficial) Left lower extremity: knee Details: normal to inspection; Negative for no swelling, ankle Details: tenderness and swelling Details: laterally and foot Details: tenderness Location: of the calcaneus Details: with squeeze and of the lateral foot Course Vital Signs Vital signs: Vital Signs Temperature 36.6 C 07/31/21 23:04 Pulse 84 07/31/21 23:04 Respiratory Rate 18 07/31/21 23:04 Blood Pressure 119/72 07/31/21 23:04 Pulse Oximetry 100 07/31/21 23:04 Temperature 36.6 C 07/31/21 23:04 Temperature Source Tympanic 07/31/21 23:04 Pulse 84 07/31/21 23:04 Respiratory Rate 18 07/31/21 23:04 Blood Pressure 119/72 07/31/21 23:04 Blood Pressure Position Supine 07/31/21 23:04 Pulse Oximetry 100 07/31/21 23:04 Oxygen Delivery Method Room Air 07/31/21 23:04 Oxygen Flow Rate 0 07/31/21 23:04 Procedures Orthopedic Splinting/Casting Injury #1: Side: left Lower Extremity Injury Location: foot Lower Extremity Immobilizer: posterior splint, stirrup splint (Plaster) and Bhavik wrap Other Orthopedic Equipment: crutches (Patient has own)
[2021-07-31] MEDS: Acetaminophen 500 MG TAB 1000 MG PO (23:49)
--- NOTE | 2021-08-01 00:39 | DI.VRAD_ITS ---
PROCEDURE INFORMATION: Exam: XR Left Ankle Exam date and time: 07/31/2021 11:21 PM Age: 51 years old Clinical indication: Injury or trauma; Other: Twist; Blunt trauma; Ankle; Left; Injury date: 07/31/21; Injury details: Pulled while walking dog, heard a pop TECHNIQUE: Imaging protocol: XR Left ankle. Views: 3 or more views. COMPARISON: No relevant prior studies available. FINDINGS: Bones/joints: Normal. Soft tissues: Normal. IMPRESSION: No acute findings. Dictated and Authenticated by: Sher Olson MD. Ordering:RJ Abrams MD
[2021-08-01 00:46] VITALS: BP 109/64; PULSE 74; RESP 16; O2SAT 96
== END 2021-08-01 00:51 | disposition home or self-care (01) ==
PROVIDERS: Emergency Provider Registered Nurse Emergency
DX: S92.812A Other fracture of left foot, initial encounter for closed fracture (principal); X50.1XXA Overexertion from prolonged static or awkward postures, initial encounter
CPT/HCPCS: 29515; 99283; 73610

== ENCOUNTER 2021-08-18 13:26 | Outpatient (CLI) | payer BC, SELFPAY ==
--- NOTE | 2021-08-18 10:45 | DI.RAD_ITS ---
Exam(s) XR HEEL LT OS CALCIS EXAM: XR HEEL LT OS CALCIS CLINICAL HISTORY: F/U L CALCANEAL FX. TECHNIQUE: 2D digital imaging was performed. Three images were obtained. COMPARISON: CR,XR XR ANKLE LT COMPLETE from 07/31/[address] LOWER EXTREMITY LT WO from 08/08/2021 FINDINGS: BONES: Compared to the prior CT scan from 08/08/2021 there has been no significant change in alignment of the comminuted left calcaneal fracture. No bony destructive lesion is seen. JOINTS: No dislocation present. SOFT TISSUE: Normal. IMPRESSION: Stable left calcaneal fracture. DATA REPOSITORY: RADIATION DOSE DELIVERED:
== END 2021-08-18 13:27 | disposition home or self-care (01) ==
LOC: DIORS 13:27
PROVIDERS: Visit Provider Physician Assistant
DX: S92.002D Unspecified fracture of left calcaneus, subsequent encounter for fracture with routine healing (principal); X58.XXXD Exposure to other specified factors, subsequent encounter
CPT/HCPCS: 73650

== ENCOUNTER 2021-09-01 11:01 | Outpatient (CLI) | payer BC, SELFPAY ==
--- NOTE | 2021-09-01 10:45 | DI.RAD_ITS ---
Exam(s) XR HEEL LT OS CALCIS EXAM: XR HEEL LT OS CALCIS CLINICAL HISTORY: F/U LEFT CALCANEAL FRACTURE. TECHNIQUE: 2D digital imaging was performed. COMPARISON: CR XR HEEL LT OS CALCIS from 08/18/2021 FINDINGS: Two dedicated views of right calcaneus (lateral and Carrington axial view) Again noted are calcaneal fracture lines. Appearance is unchanged on both views. No further displac ement. IMPRESSION: DATA REPOSITORY: RADIATION DOSE DELIVERED:
== END 2021-09-01 11:02 | disposition home or self-care (01) ==
LOC: DIORS 11:01
PROVIDERS: Visit Provider Student in an Organized Health Care Education/Training Program
DX: S92.002A Unspecified fracture of left calcaneus, initial encounter for closed fracture (principal); X58.XXXA Exposure to other specified factors, initial encounter
CPT/HCPCS: 73650

== ENCOUNTER 2021-10-06 09:53 | Outpatient (CLI) | payer BC, SELFPAY ==
--- NOTE | 2021-10-06 09:30 | DI.RAD_ITS ---
Exam(s) XR HEEL LT OS CALCIS EXAM: XR HEEL LT OS CALCIS CLINICAL HISTORY: f/u left calcaneal fracture. TECHNIQUE: 2D digital imaging was performed. COMPARISON: CR XR HEEL LT OS CALCIS from 09/01/2021 FINDINGS: Two dedicated views of the calcaneus including a lateral view and Carrington axial view. Compared to 05/2021 The oblique fracture of the calcaneus appears stable. Fracture line still visible on the axial view but without displacement. There does not appear to be significant loss of Boehler's angle. IMPRESSION: DATA REPOSITORY: RADIATION DOSE DELIVERED:
== END 2021-10-06 09:54 | disposition home or self-care (01) ==
LOC: DIORS 09:53
PROVIDERS: Visit Provider Student in an Organized Health Care Education/Training Program
DX: S92.002A Unspecified fracture of left calcaneus, initial encounter for closed fracture (principal)
CPT/HCPCS: 73650

== ENCOUNTER 2021-11-17 09:06 | Outpatient (CLI) | payer BC, SELFPAY ==
--- NOTE | 2021-11-17 08:41 | DI.RAD_ITS ---
Exam(s) XR HEEL LT OS CALCIS EXAM: XR HEEL LT OS CALCIS INDICATION: follow up. COMPARISON: CR XR HEEL LT OS CALCIS from 10/06/2021 TECHNIQUE: 2D digital imaging was performed. Two views. FINDINGS: There has been no change in the alignment of the calcaneal fracture which shows interval increase in healing. The bones are osteopenic from disuse. No new abnormalities are seen. DATA REPOSITORY: RADIATION DOSE DELIVERED:
== END 2021-11-17 09:07 | disposition home or self-care (01) ==
LOC: DIORS 09:06
PROVIDERS: Visit Provider Physician Assistant Surgical
DX: S92.002D Unspecified fracture of left calcaneus, subsequent encounter for fracture with routine healing (principal); X58.XXXD Exposure to other specified factors, subsequent encounter
CPT/HCPCS: 73650

== ENCOUNTER 2022-01-23 11:17 | Outpatient (CLI) | payer BC, SELFPAY ==
--- NOTE | 2022-01-23 11:00 | DI.RAD_ITS ---
Exam(s) XR FOOT LT COMPLETE XR HEEL LT OS CALCIS EXAM: XR FOOT LT COMPLETE CLINICAL HISTORY: left foot pain. TECHNIQUE: 2D digital imaging was performed. Three views of the foot. Two views of the calcaneus.. COMPARISON: CR,XR XR ANKLE LT COMPLETE from 07/31/2021 CR XR HEEL LT OS CALCIS from 09/01/2021 CR XR HEEL LT OS CALCIS from 10/06/2021 CR XR HEEL LT OS CALCIS from 11/17/2021 CR XR HEEL LT OS CALCIS from 01/23/2022 FINDINGS: BONES: Nondisplaced fracture proximal phalanx 5th toe, acute versus subacute. There is no separation at the articular surface. Disuse osteopenia. Continued healing of previously noted calcaneal fract ure.. No bony destructive lesion is seen. JOINTS: No dislocation present. SOFT TISSUE: Swelling around the 5th MTP joint. IMPRESSION: Continued healing of calcaneal fracture. Acute or subacute fracture at the proximal phalanx of the 5 th toe. DATA REPOSITORY: RADIATION DOSE DELIVERED:
== END 2022-01-23 11:18 | disposition home or self-care (01) ==
LOC: DIORS 11:18
PROVIDERS: Visit Provider Physician Assistant
DX: M79.672 Pain in left foot (principal); S92.515A Nondisplaced fracture of proximal phalanx of left lesser toe(s), initial encounter for closed fracture; S92.012D Displaced fracture of body of left calcaneus, subsequent encounter for fracture with routine healing
CPT/HCPCS: 73630; 73650

== ENCOUNTER → 2022-03-24 00:40 | Outpatient (CLI) | payer BC, SELFPAY ==
--- NOTE | 2022-03-24 06:45 | DI.MAMMO_ITS ---
Exam(s) MAMMO SCREENING EXAM: MAMMO SCREENING CLINICAL HISTORY: screening, Z00.00 TECHNIQUE: Bilateral full field digital CC and MLO mammographic images were obtained with 3D tomosyn thesis and utilizing computer aided detection (CAD). COMPARISON: Available for comparison. FINDINGS: Masses/Architectural Distortion: None seen. Microcalcifications: No suspicious pleomorphic-type are seen. Skin Thickening/Nipple Retraction: None. IMPRESSION: 1. No significant interval change with no specific features of malignancy noted. 2. Unless there is more urgent need, screening mammography is recommended, as per [employer] guidelines. BI-RADS Category 1 - Negative Breast Density - Category C - Heterogeneously dense Breast density category C or D implies that the patient has dense breast tissue. Dense breast tissue is very common and is not abnormal but dense breast tissue can make it harder to find cancer on a ma mmogram. Also, dense breast tissue may increase their breast cancer risk. This information about the result of the mammogram report was provided to the patient to raise their awareness. Use this report when you speak with the patient about their risks for breast cancer, which includes their family hist ory. At that time, you may recommend for more screening tests (Ultrasound or MRI) as they might be us eful based on their risk. A negative radiographic report should not delay biopsy if a dominant or clinically suspicious mass is present. Up to ten percent of cancers are not identified on mammography. A negative report may reinforce clinical impression. Adenosis and dense breasts may obscure an underlying neoplasm. False positive reports average 6 to 10%. Patient will receive a letter notifying them of these results.
--- NOTE | 2022-03-24 07:44 | DI.CTLCSR_ITS ---
Exam(s) CT CHEST LUNG CANCER SCREEN EXAM: CT CHEST LUNG CANCER SCREEN CLINICAL HISTORY: Screening for lung cancer, current smoker, F17.200 TECHNIQUE: Imaging Protocol: Axial computed tomography images with coronal and sagittal reformatted images were created and reviewed COMPARISON: No exams were available for comparison FINDINGS: Tracheobronchial tree: Patent where visualized. Pulmonary parenchyma: No consolidation or dominant measurable mass. No architectural distortion. Note is made of an azygos lobe which is a normal variant. Lung Nodules: There is a 0.4 cm pulmonary nodule in the right upper lobe. Mediastinum and Misty: No dominant adenopathy or fluid collection. The esophagus is unremarkable. Thyroid gland: Unremarkable. Lymph nodes: Unremarkable. Pleura: No effusion or pneumothorax. Heart: The heart is not dilated. No coronary artery calcifications are seen. No pericardial effusion . Aorta: Thoracic aorta non-dilated.Atherosclerosis is present. Upper abdomen: There are 3 hypodense round lesions in the liver most suggestive of hepatic cysts. N onemergent hepatic ultrasound may be obtained for further characterization. Soft Tissues: Unremarkable. Bones: Within normal limits. IMPRESSION: 1. 0.4 cm pulmonary nodule in the right upper lobe. 2. Three hypodense hepatic lesions most suggestive of cysts. Nonemergent hepatic ultrasound may be o btained for further characterization. Lung RADS Cat 3 - Probably Benign: Probably benign finding(s) - short term follow-up suggested; inclu de nodules with a low likelihood of becoming a clinically active cancer. Lung-RADS 1.0 CATEGORIES: Category 0 - Prior chest CT exam(s) being located for comparison. Category 1 - Annual screening in 12 months. No nodules or definitely benign nodules. Category 2 - Annual screening in 12 months. Benign appearance. Nodules with low likelihood of becomin g active cancer. Category 3 - 6-month follow-up. Probably benign. Short-term follow-up suggested. Nodules with low lik elihood of becoming active cancer. Category 4A - 3-month follow-up and CT/PET if >8 mm in size. Suspicious finding. Findings which requi re additional testing. Category 4B - Findings which require additional testing and tissue sampling. Suspicious finding. Category 4X - Category 3 or 4 nodules with additional features or imaging findings that increases the suspicion of malignancy. Modifier S- Potentially clinically significant finding. (Non lung cancer) Unexpected findings RADIATION DOSE DELIVERED: 75.89mGy.cm Total DLP 75.89mGy.cmTotal DLP DATA REPOSITORY: All CT scans at this facility are submitted to the National Radiology Data Registry (NRDR) Dose Index Registry (DIR) with the [employer] ([employer]). RADIATION OPTIMIZATION: All CT scans at this facility use at least one of these dose optimization te chniques: automated exposure control; mA and/or kV adjustment per patient size (includes targeted exa ms where dose is matched to clinical indication); or iterative reconstruction.
== END ==
PROVIDERS: PCP Nurse Practitioner Family; Visit Provider Nurse Practitioner Family
DX: Z00.00 Encounter for general adult medical examination without abnormal findings (principal); Z12.31 Encounter for screening mammogram for malignant neoplasm of breast; Z12.2 Encounter for screening for malignant neoplasm of respiratory organs; F17.210 Nicotine dependence, cigarettes, uncomplicated; R91.1 Solitary pulmonary nodule; K76.89 Other specified diseases of liver
CPT/HCPCS: 71271; 77063; 77067

== ENCOUNTER 2023-01-30 03:10 | Outpatient (CLI) | payer BC, SELFPAY ==
[2023-01-30 10:02] LABS: Abs Immature Grans 0.01 10^3/uL (0.0-0.06); Absolute Basophil Count 0.03 10^3/uL (0.0-0.2); Absolute Eosinophil Count 0.05 10^3/uL (0.0-0.7); Absolute Monocyte Count 0.51 10^3/uL (0.1-0.8); Absolute Neutrophil Count 4.65 10^3/uL (1.2-6.7); Basophils % 0.4; Eosinophils % 0.7; HCT 42.9 % (36.0-46.0); HGB 14.8 g/dL (11.2-15.7); Immature Grans % 0.1; Lymphocytes % 28.6; MCH 32.8 pg (27.0-33.0); MCHC 34.5 % (32.0-36.0); MCV 95 fL (80-95); MPV 9.4 fL (8.0-11.0); Monocytes % 6.9; Neutrophils % 63.3; Platelet Count 326 10^3/uL (130-400); RBC 4.51 10^6/uL (3.93-5.22); RDW 13.3 % (11.7-14.6); RDW-SD 47.5 fL; WBC 7.35 10^3/uL (4.4-10.8)
[2023-01-30 10:39] LABS: Calculated LDL 169 mg/dL (<100); Cholesterol 256 mg/dL (<200); HDL Cholesterol 78 mg/dL (40-60); Triglyceride 49 mg/dL (<150)
== END 2023-01-30 03:11 | disposition home or self-care (01) ==
PROVIDERS: PCP Nurse Practitioner Family; Visit Provider Nurse Practitioner Family
DX: Z00.00 Encounter for general adult medical examination without abnormal findings (principal); F17.210 Nicotine dependence, cigarettes, uncomplicated; F41.8 Other specified anxiety disorders; R00.2 Palpitations
CPT/HCPCS: 36415; 80061; 85025

== ENCOUNTER → 2023-03-27 00:43 | Outpatient (CLI) | payer BC, SELFPAY ==
--- NOTE | 2023-03-27 07:00 | DI.MAMMO_ITS ---
Exam(s) MAMMO SCREENING EXAM: MAMMO SCREENING CLINICAL HISTORY: screening, Z12.39 TECHNIQUE: Bilateral full field digital CC and MLO mammographic images were obtained with 3D tomosyn thesis and utilizing computer aided detection (CAD). COMPARISON: 2013 through 2021 FINDINGS: Masses/Architectural Distortion: None seen. Microcalcifications: No suspicious pleomorphic-type are seen. Skin Thickening/Nipple Retraction: None. IMPRESSION: 1. No significant interval change with no specific features of malignancy noted. 2. Unless there is more urgent need, screening mammography is recommended, as per [employer] guidelines. BI-RADS Category 1 - Negative Breast Density - Category B - Scattered areas of fibroglandular density A negative radiographic report should not delay biopsy if a dominant or clinically suspicious mass is present. Up to ten percent of cancers are not identified on mammography. A negative report may reinforce clinical impression. Adenosis and dense breasts may obscure an underlying neoplasm. False positive reports average 6 to 10%. Patient will receive a letter notifying them of these results.
== END ==
PROVIDERS: PCP Nurse Practitioner Family; Visit Provider Nurse Practitioner Family
DX: Z12.31 Encounter for screening mammogram for malignant neoplasm of breast (principal)
CPT/HCPCS: 77063; 77067

== ENCOUNTER 2024-03-28 00:43 | Outpatient (CLI) | payer BC, SELFPAY ==
--- NOTE | 2024-03-28 06:45 | DI.MAMMO_ITS ---
Exam(s) MAMMO SCREENING EXAM: MAMMO SCREENING CLINICAL HISTORY: screening, Z12.39 TECHNIQUE: Mammograms were interpreted according to the usual protocol including computer analysis w [employer] CAD system, tomosynthesis and C-view imaging. COMPARISON: 2014 through 2022 FINDINGS: The breasts are composed of heterogeneously dense fibroglandular densities, Breast Density category C . No suspicious masses or suspicious microcalcifications are seen. No skin thickening or abnormal axillary lymph nodes are seen. There has been no significant change from prior exams. IMPRESSION: BI-RADS Category 1, Negative mammogram. Yearly screening mammography is recommended. Breast Density Category C, heterogeneously Dense. The mammogram demonstrates the patient's breast tissue is dense. Dense breast tissue is very common a nd is not abnormal but dense breast tissue can make it harder to find cancer on a mammogram. Also, de nse breast tissue may increase breast cancer risk. This information about the result of the mammogram report was provided to the patient to raise their awareness. Use this report when you speak with the patient about their risks for breast cancer, which includes their family history. At that time, you may recommend additional screening tests (Ultrasound or MRI) as they might be useful based on their r isk. A negative radiographic report should not delay biopsy if a dominant or clinically suspicious mass is present. Up to ten percent of cancers are not identified on mammography. A negative report may reinforce clinical impression. Adenosis and dense breasts may obscure an underlying neoplasm. False positive reports average 6 to 10%.
== END 2024-03-28 01:03 ==
LOC: DI 00:43
PROVIDERS: PCP Nurse Practitioner Family; Visit Provider Nurse Practitioner Family
DX: Z12.31 Encounter for screening mammogram for malignant neoplasm of breast (principal); R92.333 Mammographic heterogeneous density, bilateral breasts
CPT/HCPCS: 77063; 77067

== ENCOUNTER 2024-03-28 01:50 | Outpatient (CLI) | payer BC, SELFPAY ==
[2024-03-28 08:36] LABS: HCT 47.9 % (36.0-46.0); HGB 16.4 g/dL (11.2-15.7); MCHC 34.2 % (32.0-36.0); MCV 99 fL (80-95); MPV 9.3 fL (8.0-11.0); Platelet Count 306 10^3/uL (130-400); RBC 4.83 10^6/uL (3.93-5.22); RDW 13.7 % (11.7-14.6); RDW-SD 51.1 fL; WBC 9.01 10^3/uL (4.4-10.8)
[2024-03-28 08:49] LABS: Hemoglobin A1C 5.2 % (<5.7)
[2024-03-28 09:19] LABS: ALT 28 U/L (14-59); AST 35 U/L (15-37); Albumin 4.2 g/dL (3.4-5.0); Alkaline Phosphatase 70 U/L (46-116); Anion Gap 8.8 mmol/L (3-11); BUN 12 mg/dL (7-18); Bilirubin, Total 0.41 mg/dL (0.2-1.0); CO2 31.2 mmol/L (21.0-32.0); Calcium 9.4 mg/dL (8.5-10.1); Calculated LDL 124 mg/dL (<100); Chloride 102 mmol/L (98-107); Cholesterol 244 mg/dL (<200); Estimated GFR 66.53 (mL/min/1.73m2); Glucose 136 mg/dL (74-106); HDL Cholesterol 109 mg/dL (40-60); Potassium 4.1 mmol/L (3.5-5.1); Sodium 142 mmol/L (136-145); Total Protein 7.7 g/dL (6.4-8.2); Triglyceride 55 mg/dL (<150)
== END 2024-03-28 01:51 | disposition home or self-care (01) ==
PROVIDERS: PCP Nurse Practitioner Family; Visit Provider Nurse Practitioner Family
DX: F43.0 Acute stress reaction (principal); F17.210 Nicotine dependence, cigarettes, uncomplicated; Z00.00 Encounter for general adult medical examination without abnormal findings; R73.09 Other abnormal glucose
CPT/HCPCS: 36415; 80053; 80061; 85027; 83036

== ENCOUNTER → 2025-03-30 12:31 | Outpatient (CLI) | payer OTHER, SELFPAY ==
--- NOTE | 2025-03-30 09:15 | DI.MAMMO_ITS ---
Exam(s) MAMMO SCREENING EXAM: MAMMO SCREENING CLINICAL HISTORY: screening,z12.39. TECHNIQUE: Bilateral full field digital CC and MLO mammographic images were obtained with 3D tomosynthesis and utilizing computer aided detection (CAD). COMPARISON: Prior mammograms were reviewed. FINDINGS: There has been no significant change in the appearance and distribution of the fibroglandular tissue. There are no CAD designations. There are no new spiculated masses nor malignant appearing microcalcification groups. Small benign-appearing superficially located nodule posterior 0 laterally in the left breast is unchanged from all prior mammograms dating back to at least 2017. There is no significant architectural distortion nor skin thickening-retraction. IMPRESSION: No radiographic evidence of malignancy. BI-RADS Category 1 - Negative Breast Density - Category C - The breast are heterogeneously dense, which may obscure small masses. Breast density Category C or D implies that the patient has dense breast tissue. Dense breast tissue can make it harder to find cancer on a mammogram. Dense breast tissue is also associated with an increased risk of breast cancer. This information about the result of the mammogram report was provided to the patient to raise their awareness. Use this report when you speak with the patient about their risks for breast cancer, which includes their family history. At that time, you may recommend additional screening tests (Ultrasound or MRI) as these tests may add significant information. A negative radiographic report should not delay biopsy if a dominant or clinically suspicious mass is present. Up to ten percent of cancers are not identified on mammography. A negative report may reinforce clinical impression. Adenosis and dense breasts may obscure an underlying neoplasm. False positive reports average 6 to 10%. Patient will receive a letter notifying them of these results.
== END ==
LOC: DI 12:31
PROVIDERS: PCP Nurse Practitioner Family; Visit Provider Nurse Practitioner Family
DX: Z12.31 Encounter for screening mammogram for malignant neoplasm of breast (principal); R92.323 Mammographic fibroglandular density, bilateral breasts
CPT/HCPCS: 77063; 77067

== ENCOUNTER 2025-03-30 14:34 | Outpatient (CLI) | payer OTHER, SELFPAY ==
[2025-03-30 13:57] LABS: ALT 19 U/L (10-49); AST 28 U/L (<34); Albumin 4.5 g/dL (3.2-5.0); Alkaline Phosphatase 58 U/L (46-116); Anion Gap 7.5 mmol/L (3-11); BUN 5 mg/dL (9-23); Bilirubin, Total 0.5 mg/dL (0.2-1.2); CO2 27.5 mmol/L (20.0-31.0); Calcium 9.5 mg/dL (8.3-10.6); Chloride 108 mmol/L (98-107); Cholesterol 236 mg/dL (<200); Glucose 117 mg/dL (74-106); HDL Cholesterol 101 mg/dL (>or=50); Potassium 4.1 mmol/L (3.5-5.1); Sodium 143 mmol/L (136-145); Total Protein 6.7 g/dL (5.7-8.2)
[2025-03-31 18:59] LABS: HIV-1/2 Ag & Ab Screen Negative (Negative)
[2025-03-31 19:51] LABS: Hepatitis C Ab w Rflx HCV PCR Negative (Negative)
== END 2025-03-30 14:35 | disposition home or self-care (01) ==
LOC: LBO 14:36
PROVIDERS: PCP Nurse Practitioner Family; Visit Provider Nurse Practitioner Family
DX: Z00.00 Encounter for general adult medical examination without abnormal findings (principal); E78.5 Hyperlipidemia, unspecified; F17.200 Nicotine dependence, unspecified, uncomplicated; Z80.3 Family history of malignant neoplasm of breast
CPT/HCPCS: 36415; 80053; 80061; 86803; 87389